=== PATIENT | female | born 1965 | race Caucasian/White ===

== ENCOUNTER 2021-03-29 07:41 | Day surgery (SDC) | payer BC ==
[~2021-03-29 07:41] MED LIST: Glycopyrrolate 0.2 MG/ML SDV ONE; Lactated Ringers 1,000 ML IV SCH; Propofol 200 MG/20 ML SDV ONE
--- NOTE | 2021-03-29 09:19 | PCM.PREANE ---
Preanesthetic Assessment - Anesthesia/Transfusion/Family Hx Anesthesia History: Prior Anesthesia Without Reaction Other Type of Anesthesia Reaction Comment: "mother has hard time waking up" Transfusion History: No Prior Transfusion(s) Intubation History: Unknown - Review of Systems General: No Symptoms Pulmonary: No Symptoms Cardiovascular: No Symptoms Gastrointestinal: No Symptoms Neurological: No Symptoms Other: Reports: None - Physical Assessment NPO Status Date: 03/28/21 NPO Status Time: 23:00 Vital Signs: Last Vital Signs Temp 36.1 C 03/29/21 08:10 Pulse 77 03/29/21 08:10 Resp 16 03/29/21 08:10 BP 132/75 03/29/21 08:10 Pulse Ox 97 03/29/21 08:10 Height: 5 ft 3 in Weight: 42.638 kg ASA Class: 2 Mental Status: Alert & Oriented x3 Airway Class: Mallampati = 2 Dentition: Reports: Normal Dentition Thyro-Mental Finger Breadths: 3 Mouth Opening Finger Breadths: 3 ROM/Head Extension: Full Lungs: Clear to Auscultation, Normal Respiratory Effort Cardiovascular: Regular Rate, Regular Rhythm - Allergies Allergies/Adverse Reactions: Allergies Allergy/AdvReac Type Severity Reaction Status Date / Time bandaids Allergy Redness Uncoded 03/23/21 08:34 - Acknowledgements Anesthesia Type Planned: General Anesthesia Pt an Appropriate Candidate for the Planned Anesthesia: Yes Alternatives and Risks of Anesthesia Discussed w Pt/Guardian: Yes Pt/Guardian Understands and Agrees with Anesthesia Plan: Yes PreAnesthesia Questionnaire HEENT History: Reports: Other (See Below) Other HEENT History: wears glasses Cardiovascular History: Reports: None Respiratory History: Reports: Other (See Below) Other Respiratory History: occasional bronchitis ,hx: long time smoking since age 16 yrs, current 1/2 pack/day Gastrointestinal History: Reports: Colon Polyp, Diverticulosis, Other (See Below) Other Gastrointestinal History: Chronic [place] Genitourinary History: Reports: None [employer] History: Reports: Endometriosis Musculoskeletal History: Reports: Fracture, Gout Other Musculoskeletal History: hx: Fracture left arm 1st grade Neurological History: Reports: None Psychiatric History: Reports: None Endocrine/Metabolic History: Reports: None Hematologic History: Reports: None Immunologic History: Reports: None Oncologic (Cancer) History: Reports: Malignant Melanoma Other Oncologic History: Melanoma excised age 5 yrs of age, 2nd occurence to BAck excised 11/2012 Dermatologic History: Reports: None - Past Surgical History Head Surgeries/Procedures: Reports: None HEENT Surgical History: Reports: Tonsillectomy Cardiovascular Surgical History: Reports: None Respiratory Surgical History: Reports: None GI Surgical History: Reports: Colonoscopy, EGD Female Surgical History: Reports: Other (See Below) Other Female Surgeries/Procedures: diagnostic laparoscopy Endocrine Surgical History: Reports: None Neurological Surgical History: Reports: None Musculoskeletal Surgical History: Reports: None Dermatological Surgical History: Reports: Skin Biopsy - SUBSTANCE USE Tobacco Use Status *Q: Current Every Day Tobacco User Tobacco Use Within Last Twelve Months: Cigarettes - HOME MEDS Home Medications: Home Meds Bismuth Subsalicylate [Pepto-Bismol] 1 dose PO ASDIRECTED PRN 07/17/18 [History] Albuterol Sulfate [Albuterol Sulfate HFA] 1 - 2 puff INH ASDIRECTED PRN 03/23/21 [History] Calcium Carbonate [Tums] 1 tab.chew CHEW ASDIRECTED PRN 03/23/21 [History] RABEprazole Sodium [Aciphex] 20 mg PO DAILY 03/23/21 [History] - CURRENT (IN HOUSE) MEDS Current Meds: Current Medications Lactated Ringer's (Ringers, Lactated) 1,000 mls @ 125 mls/hr IV ASDIRECTED SARAH Last Admin: 03/29/21 08:10 Dose: 125 mls/hr Documented by: Discontinued Medications Glycopyrrolate (Glycopyrrolate 0.2 Mg/Ml Sdv) Confirm Administered Dose 0.2 mg .ROUTE .STK-MED ONE Stop: 03/29/21 06:55 Lidocaine HCl (Lidocaine 1% 5 Ml Sdv) Confirm Administered Dose 5 ml .ROUTE .STK-MED ONE Stop: 03/29/21 06:55 Propofol (Propofol 200 Mg/20 Ml Sdv) Confirm Administered Dose 200 mg .ROUTE .STK-MED ONE Stop: 03/29/21 06:56
--- NOTE | 2021-03-29 09:59 | PCM.POSTAN ---
POST ANESTHESIA ASSESSMENT - MENTAL STATUS Mental Status: Alert, Oriented - VITAL SIGNS Vital Signs: Last Vital Signs Temp 36.5 C 03/29/21 09:54 Pulse 88 03/29/21 09:54 Resp 24 H 03/29/21 09:54 BP 114/69 03/29/21 09:54 Pulse Ox 94 L 03/29/21 09:54 - RESPIRATORY Respiratory Status: Respiratory Rate WNL, Airway Patent, O2 Saturation Stable - CARDIOVASCULAR CV Status: Pulse Rate WNL, Blood Pressure Stable - GASTROINTESTINAL GI Status: No Symptoms - POST OP HYDRATION Hydration Status: Adequate & Stable
--- NOTE | 2021-03-29 09:59 | PCM48HPAN ---
Post Anesthesia Note - EVALUATION WITHIN 48HRS OF ANESTHETIC Vital Signs in Normal Range: Yes Patient Participated in Evaluation: Yes Respiratory Function Stable: Yes Airway Patent: Yes Cardiovascular Function Stable: Yes Hydration Status Stable: Yes Pain Control Satisfactory: Yes Nausea and Vomiting Control Satisfactory: Yes Mental Status Recovered: Yes Vital Signs: Last Vital Signs Temp 36.5 C 03/29/21 09:54 Pulse 88 03/29/21 09:54 Resp 24 H 03/29/21 09:54 BP 114/69 03/29/21 09:54 Pulse Ox 94 L 03/29/21 09:54
[2021-03-29] MEDS ORDERED: Lactated Ringers 1,000 ML IV SCH (10:00)
--- NOTE | 2021-03-29 10:03 | PCM.OPNOTE ---
- General Post-Op/Procedure Note Date of Surgery/Procedure: 03/29/21 Operative Procedure(s): Esophagogastroduodenoscopy with antral biopsy Pre Op Diagnosis: Chronic gastroesophageal reflux disease. Progressive heartburn. Post-Op Diagnosis: Chronic gastritis. No evidence of esophagitis. Anesthesia Technique: MAC (ASA II) Primary Surgeon: Eduardo Francis Condition: Good Free Text/Narrative:: DICTATION [id number] CPTCODE [id number]
[2021-03-29 10:40] VITALS: BP 127/73; PULSE 80
--- NOTE | 2021-03-29 14:59 | OR ---
SURGEON: Eduardo Francis M.D. DATE OF PROCEDURE: 03/29/2021 OPERATION PERFORMED: Esophagogastroduodenoscopy with antral biopsy. PRIMARY SURGEON: Eduardo Francis M.D. ANESTHESIA: MAC. ASA CLASSIFICATION: II. PREOPERATIVE DIAGNOSIS: Heartburn. POSTOPERATIVE DIAGNOSES: Mild chronic gastritis, no evidence of esophagitis or Tate esophagus. DESCRIPTION OF PROCEDURE: The patient was taken to the endoscopy room and positioned on the endoscopy table in the supine position. Time-out was called for appropriate identification of the patient and procedure. Monitored anesthesia care was provided. The bite block was placed between the patient's teeth. The gastroscope was inserted through the bite block and advanced without difficulty through the esophagus and stomach into the duodenum, where examination was carried out in a retrograde fashion. The duodenum showed no acute inflammatory changes or ulcerations. The stomach did show mild to moderate gastritis. No ulcerations were noted. Antral biopsies were obtained to look for the presence of Helicobacter pylori. The gastroscope was retroflexed to visualize the proximal stomach. No tumors, polyps, or hiatal hernia was noted. The gastroscope was then straightened and slowly withdrawn. The greater and lesser curvatures were well visualized. No ulcerations were noted. No polyps were encountered in the stomach. The scope was then withdrawn through the GE junction. This was well defined and showed no acute inflammatory changes or ulcerations. The esophagus itself demonstrated good contractility. No mid or proximal lesions were identified. The vocal cords were briefly visualized as the gastroscope was removed. No vocal cord lesions were identified. The gastroscope was then removed with the patient having tolerated the procedure well. She was taken to recovery room in stable condition. DIEGO / EMIL /[id number]
== END 2021-03-29 10:38 | disposition home or self-care (01) ==
LOC: MW.SDS 07:41
PROVIDERS: ATTEND Surgery
DX: K29.50 Unspecified chronic gastritis without bleeding (principal); K21.9 Gastro-esophageal reflux disease without esophagitis; F17.210 Nicotine dependence, cigarettes, uncomplicated; M10.9 Gout, unspecified; Z86.010 Personal history of colon polyps
CPT/HCPCS: 43239; 88305; 88342; J2704; J3490; J7120; 00731

== ENCOUNTER 2022-09-24 14:05 | Emergency (ER) | payer BC ==
[2022-09-24] MEDS ORDERED: Ketorolac 30 MG/ML SDV IM ONE (15:53)
[2022-09-24 17:21] VITALS: BP 142/68; PULSE 83
== END 2022-09-24 17:17 | disposition home or self-care (01) ==
LOC: MW.ED 14:05
DX: S00.83XA Contusion of other part of head, initial encounter (principal); M10.9 Gout, unspecified; Z72.0 Tobacco use; W50.0XXA Accidental hit or strike by another person, initial encounter; Y93.84 Activity, sleeping; Z91.048 Other nonmedicinal substance allergy status
CPT/HCPCS: 70486; 96372; 99283; J1885